=== PATIENT | male | born 1980 | race American Indian/Alaskan Native ===

== ENCOUNTER 2016-08-01 22:43 | Emergency (ER) | payer SELFPAY ==
[2016-08-02] MEDS ORDERED: DELTASONE PO ONE (00:38)
[2016-08-02] MEDS ORDERED: BICILLIN L-A IM ONE (00:38)
[2016-08-02] MEDS ORDERED: MAGIC MOUTHWASH PO ONE (00:38)
--- NOTE | 2016-08-02 00:39 | Emergency Department Report ---
HPI - General Chief Complaint: Dental/Oral Time Seen by Provider: 08/02/16 00:29 - HPI HPI: Patient is a 36 year-old male who presents to ED complaining of throat pain today. Patient describes pain as throbbing in nature, 8 out of 10 intensity, nonradiating, localized to his throat. Admits pain with swallowing and eating. Patient admits no appetite due to throat pain. Patient denies Fever/ nausea/vomiting/cough/ abdominal pain/shortness of breath/ chest pain/headache. ED Past Medical Hx - Medications Home Medications: Home Medications Medication Instructions Recorded Confirmed Last Taken Type Ibuprofen [Motrin] 800 mg PO Q8HR PRN #24 tablet 08/02/16 Unknown Rx ED Review of Systems ROS: Stated complaint: THROAT SWELLING/GUILHERME/TROUBLE SWALLOWING Other details as noted in HPI Constitutional: denies: chills, fever Eyes: denies: eye pain, eye discharge, vision change ENT: throat pain. denies: ear pain, dental pain, hearing loss Respiratory: denies: cough, shortness of breath, wheezing Cardiovascular: denies: chest pain, palpitations Endocrine: no symptoms reported Gastrointestinal: denies: abdominal pain, nausea, diarrhea Genitourinary: denies: urgency, dysuria Musculoskeletal: denies: back pain, joint swelling, arthralgia Skin: denies: rash, lesions Neurological: denies: headache, weakness, paresthesias Psychiatric: denies: anxiety, depression Hematological/Lymphatic: denies: easy bleeding, easy bruising Physical Exam - Physical Exam Vital Signs: Vital Signs 08/01/16 08/01/16 22:48 22:50 Temperature 99.7 F H 99.7 F H Pulse Rate 107 H 107 H Respiratory 22 Rate Blood Pressure 149/97 Blood Pressure 149/97 [Right] O2 Sat by Pulse 97 99 Oximetry Physical Exam: GENERAL: Alert and oriented x3, no apparent distress, Normal Gait, atraumatic. HEAD: Head is normocephalic and a-traumatic. EYES: Extra ocular muscles are intact. Pupils are equal, round, and reactive to light and accommodation. EARS: symetrical, atraumatic, non tender, ear canal clear and moderate cerumen, tympanic membrance non inflamed. gross auditory nml bilaterally. NOSE: Nose symetrical, Nontender,Nares appeared normal. MOUTH:Mouth is well hydrated and without lesions. Tonsils erythematous and swollen, Uvula midline, Tongue not elevated. Mucous membranes are moist. Posterior pharynx clear, no exudate or lesions. Patent airways. NECK: Supple. Non edematous, No carotid bruits. Anterior cervical lymphadenopathy , no thyromegaly. LUNGS: Symetrical with respiration, No wheezing, no rales or crackles, CTAB. HEART: S1, S2 present, regular rate and rhythm without murmur, no rubs, no gallops. ABDOMEN: No organomegaly was noted,Positive bowel sounds, soft, and non- distended. . Nontender to palpation on all Quadrants, NO CVA tenderness. SKIN: Warm and dry, No lesions, No ulceration or induration present. ED Course Vital Signs 08/01/16 08/01/16 22:48 22:50 Temperature 99.7 F H 99.7 F H Pulse Rate 107 H 107 H Respiratory 22 Rate Blood Pressure 149/97 Blood Pressure 149/97 [Right] O2 Sat by Pulse 97 99 Oximetry ED Medical Decision Making - Medical Decision Making 36-year-old male presents with strep pharyngitis. ED course: Rapid strep tests ordered rapid strep test positive Patient received 1 dose of Tylenol, 1.2 million units of penicillin, 60 mg of prednisone. Fever responsive to one dose of Tylenol. Vital signs stable patient is in no acute or respiratory distress. Discussed findings with patient about the positive strep. Discussed treatment in ED with patient Discussed the patient that strep throat is contagious and to limit sharing spoons and such. Pt to be sent home on Motrin Discussed with patient follow-up with primary care physician. Patient verbally states he understands and will comply to follow-up. Critical care attestation.: If time is entered above; I have spent that time in minutes in the direct care of this critically ill patient, excluding procedure time. ED Disposition Clinical Impression: Strep pharyngitis Acute tonsillitis Qualifiers: Pharyngitis/tonsillitis etiology: streptococcus Streptococcal tonsillitis recurrence: non-recurrent Qualified Code(s): J03.00 - Acute streptococcal tonsillitis, unspecified Disposition: TO HOME OR SELFCARE Is pt being admited?: No Does the pt Need Aspirin: No Condition: Stable Instructions: Pharyngitis (ED), Strep Throat (ED) Prescriptions: Ibuprofen [Motrin] 800 mg PO Q8HR PRN #24 tablet PRN Reason: Pain Referrals: PRIMARY CARE, [Primary Care Provider] - 3-5 Days [facility] [Outside] - 3-5 Days [facility] [Outside] - 3-5 Days [facility] [Outside] - 3-5 Days Forms: Work/School Release Form(ED) Time of Disposition: 01:26
[2016-08-02 01:52] VITALS: BP 130/84
== END 2016-08-02 01:52 | disposition home or self-care (01) ==
LOC: ED 22:43
DX: J02.0 Streptococcal pharyngitis (principal); J03.00 Acute streptococcal tonsillitis, unspecified
CPT/HCPCS: 87430; 96372; 99283; J0561; J7512